=== PATIENT | female | born 1960 | race Caucasian/White ===

== ENCOUNTER → 2023-04-09 10:40 | Outpatient (BNVA) | payer BC, SELFPAY | PROVIDERS: Visit Provider Nurse Practitioner Family | DX: R35.0 Frequency of micturition (principal) | CPT/HCPCS: 81000 ==

== ENCOUNTER → 2025-09-01 16:13 | Outpatient (BNVA) | payer BC, SELFPAY | PROVIDERS: Visit Provider Family Medicine Adult Medicine | DX: R39.15 Urgency of urination (principal) | CPT/HCPCS: 81000 ==